=== PATIENT | female | born 1990 | race Caucasian/White ===

== ENCOUNTER 2021-11-10 11:14 | Emergency (ER) | payer OTHER, SELFPAY ==
[2021-11-10 11:27] VITALS: BP 113/65; PULSE 79; RESP 16; TEMP 36.7; O2SAT 100
--- NOTE | 2021-11-10 11:50 | ED.FEMALEGU ---
HPI - Female Genitourinary General Chief complaint: Urogenital-Female Stated complaint: Poss uti Time Seen by Provider: 11/10/21 11:50 Source: patient, RN notes reviewed and old records reviewed Mode of arrival: ambulatory Limitations: no limitations History of Present Illness HPI Narrative: 30-year-old female presents to the [facility] with concern over UTI. Suprapubic and right lower quadrant. Denies any nausea or vomiting. Last bowel movement was yesterday. Denies fevers. No treatment prior to arrival MD elicited complaint: UTI Related Data Home Medications Medication Instructions Recorded Confirmed No Home Medications 11/10/21 11/10/21 Allergies Allergy/AdvReac Type Severity Reaction Status Date / Time No Known Allergies Allergy Verified 11/10/21 11:40 Review of Systems Review of Systems: All systems reviewed & are unremarkable except as noted in HPI and below Constitutional: Constitutional: Reports no additional constitutional complaints, Denies chills and Denies fatigue Eyes: Eyes: Reports no additional eye complaints ENT: Reports system reviewed and no additional complaints, except as documented Cardiovascular: Cardiovascular: Reports no additional cardiovascular complaints and Denies chest pain Respiratory: Respiratory: Reports no additional respiratory complaints, Denies cough and Denies wheezing Gastrointestinal: Gastrointestinal: Reports abdominal pain (Suprapubic, right lower quadrant), Denies diarrhea, Denies nausea and Denies vomiting Genitourinary: Genitourinary: Reports no additional female genitourinary complaints, Denies nocturia, Denies flank pain, Denies urinary incontinence and Denies vaginal discharge Musculoskeletal: Musculoskeletal: Reports no additional musculoskeletal complaints, Denies back pain and Denies muscle cramps Integumentary/Breasts: Skin/Breast: Reports system reviewed and no additional complaints, except as docu Neurologic: Reports system reviewed and no additional complaints, except as documented Psychiatric: Psychiatric: Reports no additional psychiatric complaints Allergic/Immunologic: Allergic/Immunologic: Reports no additional allergic/immunologic complaints PMFSH Past Medical History Medical History No pertinent past medical history Surgical History Surgical History (Updated 11/10/21 @ 12:05 by Almaz Shen) No significant past surgical history Comments At the time of my signature, I reviewed and agree with the nursing past medical, surgical, social, and family history. There is no relevant family history pertinent to the patient complaint. Exam Const: General: healthy appearing and alert Nutritional Appearance: well nourished Orientation/consciousness: patient oriented x3 Limitations: no limitations HENMT: Head: normal to inspection Ears: external ears normal Eyes: Pupils: Equal, round and reactive pupils present Neck: Neck: normal visual inspection, no lymphadenopathy and no meningeal signs Chest: Chest palpation & inspection: normal inspection of the chest Resp: Effort & Inspection: normal respiratory effort and no use of accessory muscles Auscultation: clear to auscultation bilaterally, no crackles, no rales, no rhonchi and no wheezes Cardio: Rate: regular rate Rhythm: regular rhythm GI: GI Palp: Yes Soft to palpation, Yes Tenderness to palpation present (GI) (Suprapubic, right lower quadrant) and Yes Rebound tenderness present (Right lower quadrant) Auscultation: normal bowel sounds : General: Yes no CVA tenderness Back/Spine/Pelvis: Back: no CVA tenderness Skin: General skin exam: normal color Rashes: no rashes Wounds: no wounds Neuro: General: patient oriented x3, moves all extremities, no meningeal signs and no focal motor deficits Cranial nerves: Yes Nystagmus not present Speech: normal speech Gait exam (Neuro): Normal gait present Extrem: General: normal to ins
== END 2021-11-10 12:05 | disposition left against medical advice (07) ==
PROVIDERS: Emergency Provider Nurse Practitioner
DX: R10.31 Right lower quadrant pain (principal); R10.30 Lower abdominal pain, unspecified
CPT/HCPCS: 81003; 99212; G0463

== ENCOUNTER 2022-12-24 09:00 | Emergency (ER) | payer OTHER, SELFPAY ==
--- NOTE | ~2022-12-24 | CT_ITS ---
EXAMINATION: CT pelvis w con DATE: 12/24/2022 11:39 INDICATION: Left-sided Bartholin cyst versus labial abscess. TECHNIQUE: Computed tomography (CT) of the pelvis was performed with 100 cc Omnipaque 350 intravenous contrast. The dose-length product was 151.20 mGy-cm. Automated exposure control and iterative recons truction technique were employed. COMPARISON: None FINDINGS: There is a rim-enhancing fluid collection in the left labia measuring 4.3 x 2.9 x 3.5 cm wh ich may represent an infected Bartholin cyst or labial abscess. Small amount of free fluid in the pel vis. 1.8 cm right adnexal cyst, likely ovarian. Moderate amount of retained fecal material in the col on and rectum. No significant vascular abnormality. No lymphadenopathy. No hernia. Nonobstructive bow el pattern. IMPRESSION: 1. Rim-enhancing fluid collection of the left labial measuring 4.3 x 2.9 x 3.5 cm, consistent with ei ther infected Bartholin cyst or abscess. Reviewed, dictated and finalized at location [facility] IMPRESSION: 1. Rim-enhancing fluid collection of the left labial measuring 4.3 x 2.9 x 3.5 cm, consistent with either infected Bartholin cyst or abscess.
[2022-12-24 09:03] VITALS: BP 125/66; PULSE 110; RESP 15; TEMP 36.6; O2SAT 100
--- NOTE | 2022-12-24 09:54 | ED.SKABFB ---
HPI - Skin/Abscess/Foreign Bdy General Chief complaint: Skin/Abscess/Foreign Body Stated complaint: cyst on labia Time Seen by Provider: 12/24/22 09:09 Source: patient Mode of arrival: ambulatory Limitations: no limitations History of Present Illness HPI narrative: Patient is a 32 y/o female who presents to ED with complaints of labial irritation. Patient reports having a chronic left-sided Bartholin cyst for the last several years. Denies previous issues with this. On Sunday last week, she developed irritation of the cyst with swelling, redness, pain. She thought symptoms were improving somewhat yesterday, but seemed to be worse again today, which prompted her presentation. Pain worse w/ sitting. She has not tried anything for her sx's or tried contacting her OBGYN. Patient denies any fevers, N/V, abnormal vaginal discharge or bleeding, dysuria. Related Data Allergies Allergy/AdvReac Type Severity Reaction Status Date / Time No Known Allergies Allergy Verified 11/10/21 11:40 Review of Systems Review of Systems: CONSTITUTIONAL: Denies fever, chills, or sweats. CARDIOVASCULAR: Denies chest pain. RESPIRATORY: Denies dyspnea. GASTROINTESTINAL: Denies abdominal pain, nausea, vomiting. GENITOURINARY: See HPI. SKIN: See HPI. All systems reviewed & are unremarkable except as noted in HPI and below PMFSH Past Medical History Medical History No pertinent past medical history Surgical History Surgical History No significant past surgical history Social History Social History Smoking status: Never smoker Exam Narrative: GENERAL: Well appearing, well-nourished, non-toxic, in no acute distress. HEAD: Normocephalic, atraumatic. NECK: Supple. No adenopathy, no masses. RESPIRATORY: Airway patent, respirations nonlabored. Clear to auscultation bilaterally, no rales, rhonchi, wheezing. CARDIOVASCULAR: Regular rate and rhythm without murmurs, rubs, or gallops. Peripheral pulses 2+ and equal bilaterally. ABDOMINAL: Soft, nontender, nondistended, no hepatosplenomegaly. Normoactive BS. PELVIC: Swelling and erythema diffusely throughout L labia minora, worse inferiorly, extending into L labia majora/vulvar region. Area of focal TTP in outer inferior L labia majora. More mild tenderness to inferior inner labia minora on left side, at the location of Bartholin's glands. No definitive external fluctuance appreciated. Mild amount of thick white discharge in vaginal folds, consistent with nelly infection. MUSCULOSKELETAL: Moves all extremities. Strength/ROM intact without gross deformities. SKIN: Warm, dry, normal color. No rashes. NEURO: A&O X3. Speech clear. Cranial nerves II-XII grossly intact. Steady gait. No ataxic movements. PSYCHIATRIC: Appropriate mood and affect. Normal interaction. Course Vital Signs Vital signs: Vital Signs Temperature 98 F 12/24/22 09:03 Pulse Rate 110 H 12/24/22 09:03 Respiratory Rate 15 12/24/22 09:03 Blood Pressure 125/66 12/24/22 09:03 Pulse Oximetry 100 12/24/22 09:03 Temperature 98 F 12/24/22 09:03 Pulse Rate 90 12/24/22 14:31 Respiratory Rate 16 12/24/22 14:31 Blood Pressure 109/72 12/24/22 14:31 Pulse Oximetry 100 12/24/22 14:31 Procedures Abscess I/D bartholin's gland: Date of Incision: 12/24/22 Time of Incision: 13:40 Side (if applicable): left Sedation/analgesia: none Local Anesthetic: lidocaine 2% Amount of anesthesia used (mL): 5 Technique: incised with #11 blade and probed loculations Amount of fluid expressed (mL): 15 Irrigation: Yes Packing used?: none I&D Results: Pus and Blood Complications: pain MDM - Skin/Abscess/Foreign Bdy MDM Narrative Medical decision making narrative: Patient pres
[2022-12-24] MEDS: FLUCONAZOLE 150 MG TABLET PO (10:25)
[2022-12-24 10:31] LABS: Basophils Absolute Auto 0.1 K/mm3 (0.0-0.1); Basophils Percent Auto 0.7 % (0.2-1.2); Eosinophils Percent Auto 0.4 % (0-4.4); Hemoglobin 14.3 g/dL (12.0-15.0); Immature Granulocyte Absolute 0.02 K/mm3 (0.00-0.031); Immature Granulocyte Percent A 0.3 % (0-0.5); Lymphocytes Absolute Auto 1.02 K/mm3 (0.9-3.2); Lymphocytes Percent Auto 15.1 % (18.3-44.2); Mean Corpuscular Hemoglobin 32.9 pg (26-34); Mean Corpuscular Volume 96.6 fl (80-100); Mean Platelet Volume 9.4 fl (7.4-10.4); Monocytes Absolute Auto 0.5 K/mm3 (0.1-0.6); Neutrophils Absolute Auto 5.1 K/mm3 (1.3-6.7); Neutrophils Percent Auto 75.5 % (45.5-73.1); Platelet Count Result 172 k/mm3 (150-375); Red Blood Count 4.35 M/mm3 (4.2-5.4); Red Cell Distribution Width 11.6 % (11.5-14.5); White Blood Count 6.8 K/mm3 (4.5-10.0)
[2022-12-24 10:42] LABS: Anion Gap 5 mmol/L (8-16); Blood Urea Nitrogen 11 mg/dL (7-17); Calcium 8.7 mg/dL (8.4-10.2); Carbon Dioxide 29 mmol/L (22-30); Chloride 104 mmol/L (98-107); Estimated CRCL calculation 92 ml/min; Estimated Glomerular Filt Rate > 60; Glucose 103 mg/dL (65-110); Potassium 3.8 mmol/L (3.4-5.0); Sodium 138 mmol/L (137-145)
[2022-12-24 14:31] VITALS: BP 109/72; PULSE 90; RESP 16; O2SAT 100
== END 2022-12-24 14:34 | disposition home or self-care (01) ==
PROVIDERS: Emergency Provider Physician Assistant
DX: N75.1 Abscess of Bartholin's gland (principal)
CPT/HCPCS: 36415; 56420; 72193; 80048; 81025; 85025; 99284; A9270; Q9967